=== PATIENT | male | born 1975 | race African-American/Black ===

== ENCOUNTER 2021-10-25 14:10 | Emergency (ER) | payer MEDICARE ==
[~2021-10-25] VITALS: Ht 175.3 cm; Wt 120.4 kg
[2021-10-25] MEDS ORDERED: HYDROcodone/APAP 5/325MG 1 TAB TABLET PO ONE (14:30)
--- NOTE | 2021-10-25 14:36 | PHYS DOC ---
General Adult EDM: Chief Complaint: LOWER EXT PAIN HPI: HPI: Patient is a 46-year-old male who presents to the emergency department today for right knee pain that started today. Patient rates the pain 10 out of 10. He is taking ibuprofen at home. It is worse with bearing weight. Patient denies any injuries, falls or heavy lifting, history of blood clots, redness/warmth, wounds, recent surgeries, bedrest, fevers, decreased range of motion or decreased sensation in his extremity.. Review of Systems: Review of Systems: Musculoskeletal: See HPI Integument: See HPI Neurologic: See HPI Heart Score: C/O Chest Pain: N/A Risk Factors: Risk Factors: DM, Current or recent (<one month) smoker, HTN, HLP, family history of CAD, obesity. Risk Scores: Score 0 - 3: 2.5% MACE over next 6 weeks - Discharge Home Score 4 - 6: 20.3% MACE over next 6 weeks - Admit for Clinical Observation Score 7 - 10: 72.7% MACE over next 6 weeks - Early Invasive Strategies Current Medications: Current Medications Medications (Trade) Dose Ordered Sig/Sofie Start Time Stop Time Status Last Admin Dose Admin Acetaminophen/ Hydrocodone Bitart (Lortab 5/325) 1 tab 1X ONCE 10/25/21 14:30 10/25/21 14:31 Allergies: Allergies: Allergies Coded Allergies Type Severity Reaction Last Updated Verified iodine Allergy Intermediate 10/25/21 Yes Physical Exam: PE: Constitutional: Well developed, well nourished, no acute distress, non-toxic appearance. [] HENT: Normocephalic, atraumatic, bilateral external ears normal, oropharynx moist, no oral exudates, nose normal. [] Eyes: PERRL, EOMI, conjunctiva normal, no discharge. [] Neck: Normal range of motion, no stridor Cardiovascular:Heart rate regular rhythm, no murmur [] Lungs & Thorax: Bilateral breath sounds clear to auscultation [] Abdomen: Bowel sounds normal, soft, no tenderness, no masses, obese, no pulsatile masses. [] Skin: Warm, dry, no erythema, no rash. [] Back: Normal range of motion Extremities: No tenderness, no cyanosis, no clubbing, ROM intact, no edema. Right knee: Mild swelling noted to anterior aspect of right knee, pain with palpation to medial aspect of right knee, no obvious deformities/wounds, range of motion intact, neuro intact, no redness/warmth or swelling to calf Neurologic: Alert and oriented X 3, normal motor function, normal sensory function, no focal deficits noted. [] Psychologic: Affect normal, judgement normal, mood normal. [] EKG: EKG: [] Radiology/Procedures: Radiology/Procedures: []PROCEDURE: KNEE RIGHT 3V Site ID: [id number] EXAMINATION: XR KNEE 3 VIEWS_RT. HISTORY: 46 years Male Reason: knee pain . COMPARISON: None. FINDINGS: No fracture, dislocation or radiopaque foreign body. There is joint space narrowing and prominent osteophytes seen predominantly involving the medial compartment. No suprapatellar effusion. IMPRESSION: Degenerative changes most prominent in the medial compartment. Electronically signed by: Regino Tom MD (10/25/2021 2:51 PM) [id number] DICTATED and SIGNED BY: REGINO TOM MD DATE: 10/25/21 [id number] 0 Course & Med Decision Making: Course & Med Decision Making Pertinent Labs and Imaging studies reviewed. (See chart for details) [] Patient presents to the emergency department for right knee pain. Patient denies any injury. He reports that the pain is worse with bearing weight. Patient is morbidly obese. Wells score: -2, low risk dvt. X-ray performed of patient's right knee that showed generative changes but no acute findings. Patient's knee placed in Tyler wrap. Patient educated on the rice protocol. Patient advised to take anti-inflammatory medications at home for his pain. I discussed with patient all findings and diagnostic testing as well as the need to follow-up with PCP for further evaluation and treatment or return to the ER if any new or worsening symptoms. Strict return precautions were also discussed at length. Patient voiced understanding and agreement with the plan. Patient is hemodynamically stable at the time of disposition. Arlyn Disclaimer: Arlyn Disclaimer: This electronic medical record was generated, in whole or in part, using a voice recognition dictation system. Departure Departure Impression: Primary Impression: Knee pain Qualified Codes: M25.561 - Pain in right knee Disposition: HOME / SELF CARE / HOMELESS Condition: GOOD Patient Instructions: RICE - Routine Care for Injuries Additional Instructions: You were seen in the emergency department today for a musculoskeletal problem that will likely improve over time. The x-ray did not show any acute findings but did show arthritic changes. Your symptoms may be improved by something called the rice protocol. This is rest, ice, compression, elevation. Please follow-up when doing intense exercises that may make the pain worse. Sometimes gentle stretching can provide relief, but be careful to injury. It is important to perform gentle range of motion exercises to prevent stiff joints and chronic pain. Use ice packs over the affected areas to help decrease your pain. For the first 24 hours you can apply ice 20 minutes on 20 minutes off for 4 times per day. Sometimes compression such as the use of an Tyler wrap can help with the swelling. You may also elevate the affected area to help with the swelling. You can take Tylenol and/or ibuprofen for your pain. Follow-up with your primar y care provider tomorrow regarding your ER visit. Please return to the emergency department if you develop any new injury, worsening of your pain, decreased range of motion, increased swelling, decreased sensation in your extremity, redness/warmth to your calf. KATIANA ROBERTS CHAIN PERSON Oct 25, 2021 14:35
--- NOTE | 2021-10-25 14:53 | RAD ---
Site ID: [id number] EXAMINATION: XR KNEE 3 VIEWS_RT. HISTORY: 46 years Male Reason: knee pain . COMPARISON: None. FINDINGS: No fracture, dislocation or radiopaque foreign body. There is joint space narrowing and prominent osteophytes seen predominantly involving the medial compartment. No suprapatellar effusion. IMPRESSION: Degenerative changes most prominent in the medial compartment. Electronically signed by: Gus Tom MD (10/25/2021 2:51 PM) [id number]
[2021-10-25 15:05] VITALS: BP 127/82
== END 2021-10-25 15:11 | disposition home or self-care (01) ==
LOC: ER 14:10
DX: M25.561 Pain in right knee (principal); Z88.8 Allergy status to other drugs, medicaments and biological substances
CPT/HCPCS: 73562; 99283